=== PATIENT | female | born 2005 | race African-American/Black ===

== ENCOUNTER 2023-09-25 13:10 | Emergency (ER) | payer OTHER ==
[2023-09-25 13:19] VITALS: BP 123/75; PULSE 55; RESP 18; TEMP 98.6; BMI 19.7
[2023-09-25] MEDS ORDERED: ACETAMINOPHEN 500 MG TABLET (FP) ONE (13:43)
[2023-09-25] MEDS ORDERED: AMOX TR/POT CLAV 875MG/125MG TABLETS (FP) ONE (13:43)
[2023-09-25] MEDS: ACETAMINOPHEN 500 MG TABLET (FP) PO ONE (13:44)
[2023-09-25] MEDS: AMOX TR/POT CLAV 875MG/125MG TABLETS (FP) PO ONE (13:44)
== END 2023-09-25 14:05 | disposition home or self-care (01) ==
LOC: JERFT 13:10
DX: J02.9 Acute pharyngitis, unspecified (principal); R05.9 Cough, unspecified; R07.0 Pain in throat; J03.90 Acute tonsillitis, unspecified; Z20.822 Contact with and (suspected) exposure to COVID-19
CPT/HCPCS: 0241U-QW; 87651; 99283-25

== ENCOUNTER 2024-01-01 11:14 | Emergency (ER) | payer OTHER ==
[2024-01-01 11:22] VITALS: BP 97/53; PULSE 63; RESP 20; TEMP 98.4; BMI 25.7
[2024-01-01] MEDS ORDERED: NAPROXEN 500 MG TABLET ONE (12:25)
[2024-01-01] MEDS: NAPROXEN 500 MG TABLET PO ONE (12:27)
== END 2024-01-01 12:35 | disposition home or self-care (01) ==
LOC: JERFT 11:14
DX: S46.012A Strain of muscle(s) and tendon(s) of the rotator cuff of left shoulder, initial encounter (principal); W50.0XXA Accidental hit or strike by another person, initial encounter; Y93.67 Activity, basketball
CPT/HCPCS: 73030-TC-LT-FY; 99283-25